=== PATIENT | male | born 2005 | race Hispanic/Latino ===

== ENCOUNTER 2024-06-07 13:10 | Emergency (ER) | payer BC ==
[~2024-06-07] VITALS: Ht 177.8 cm; Wt 81.7 kg
[2024-06-07] MEDS ORDERED: DEXAMETHASONE SOD PHOS 10 MG/1 ML VIAL IV ONE (13:45)
[2024-06-07] MEDS ORDERED: DEXAMETHASONE SOD PHOS INJ 4 MG/ML SDV ONE (14:26)
[2024-06-07] MEDS: DIPHENHYDRAMINE HCL INJ 50 MG/ML VIAL IV ONE (14:59)
[2024-06-07] MEDS: FAMOTIDINE 20 MG/2 ML VIAL IV STA (14:59)
[2024-06-07] MEDS: DEXAMETHASONE SOD PHOS INJ 4 MG/ML SDV IV ONE (15:00)
[2024-06-07] MEDS ORDERED: CETIRIZINE HCL10 MG PO (15:08)
[2024-06-07] MEDS ORDERED: DIPHENHYDRAMINE25 MG PO (15:08)
[2024-06-07] MEDS ORDERED: PREDNISONE50 MG PO (15:08)
[2024-06-07 15:29] VITALS: PULSE 75; RESP 18; TEMP 98.9; O2SAT 99
== END 2024-06-07 15:20 | disposition home or self-care (01) ==
LOC: FSED 13:25
DX: L50.9 Urticaria, unspecified (principal)
CPT/HCPCS: 96374; 96375; 99283; J1100 ×2; J1200